=== PATIENT | male | born 1965 | race American Indian/Alaskan Native ===

== ENCOUNTER 2017-03-20 17:18 | Emergency (ER) | payer OTHER ==
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
[2017-03-20] MEDS ORDERED: TYLENOL PO ONE (20:29)
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
[2017-03-20 21:44] VITALS: BP 137/67
== END 2017-03-20 21:43 | disposition home or self-care (01) ==
LOC: ED 17:18
DX: M54.2 Cervicalgia (principal); M54.5 Low back pain; I11.0 Hypertensive heart disease with heart failure; I50.9 Heart failure, unspecified; E11.9 Type 2 diabetes mellitus without complications; Z87.891 Personal history of nicotine dependence
CPT/HCPCS: 70450; 72125; 72131; 99283

== ENCOUNTER 2021-01-16 09:14 | Outpatient (CLI) | payer OTHER ==
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
== END 2021-01-16 09:15 | disposition home or self-care (01) ==
LOC: XRAY 09:14
PROVIDERS: ATTEND Internal Medicine
DX: I11.0 Hypertensive heart disease with heart failure (principal); I50.9 Heart failure, unspecified; E78.00 Pure hypercholesterolemia, unspecified; I35.8 Other nonrheumatic aortic valve disorders; R01.1 Cardiac murmur, unspecified; E11.9 Type 2 diabetes mellitus without complications
CPT/HCPCS: 71046